=== PATIENT | male | born 1940 | race Caucasian/White ===

== ENCOUNTER 2016-12-11 08:50 | Inpatient (IN) ==
[2016-12-11] MEDS ORDERED: ONDANSETRON 4 MG/2 ML VIAL IV STA (09:31)
[2016-12-11] MEDS ORDERED: methylPREDNISolone SOD SUC 125 MG/2 ML VIAL IV STA (09:31)
[2016-12-11] MEDS ORDERED: ALBUTEROL/IPRATROPIUM 3 ML NEB RESP TX STA (09:31)
[2016-12-11] MEDS ORDERED: DILTIAZEM 50 MG/10 ML VIAL IV STA ×2 (09:34→10:22)
[2016-12-11] MEDS ORDERED: methylPREDNISolone SOD SUC 125 MG/2 ML VIAL ONE (09:42)
[2016-12-11] MEDS ORDERED: ONDANSETRON 4 MG/2 ML VIAL ONE (09:42)
[2016-12-11] MEDS ORDERED: DILTIAZEM 50 MG/10 ML VIAL IV ONE (09:42)
[2016-12-11 09:49] LABS: Basophils % 0.4 % (0.0-0.8); Eosinophils # 0.2 10*3/uL (0.0-0.87); Eosinophils % 2.2 % (0.00-10.9); Hematocrit 41.8 VOL% (42.0-52.0); Hemoglobin 15.1 GM/DL (14.0-18.0); Immature Granulocytes Absolute 0.09 #; Lymphocytes # 1.1 10*3/uL (1.4-4.0); Lymphocytes % 12.5 % (21.2-54.2); Mean Corpuscular HGB Conc 36.1 GM/DL (32-36); Mean Corpuscular Hemoglobin 33 PG (27-34); Mean Corpuscular Volume 92.1 FL (87-102); Mean Platelet Volume 10.2 FL (9.6-12.0); Monocytes # 1.2 10*3/uL (0.11-0.8); Monocytes % 13.7 % (1.7-12.7); Neutrophils # 6.3 10*3/uL (1.4-7.4); Neutrophils % 70.2 % (38.7-73.9); Platelet Count 217 T/CUMM (130-400); Red Blood Count 4.54 MC/CUMM (3.8-5.5); Red Cell Distribution Width 13.3 % (9.3-17.3)
[2016-12-11 09:54] LABS: Apearance,Urine CLEAR (Clear); Bilirubin,Urine Negative (Negative); Blood, Urine Negative (Negative); Glucose,Urine (UA) Negative (Negative); Ketones,Urine Negative (Negative); Mucus,Urine Occasional /LPF (Occasional); Nitrite,Urine Negative (Negative); Protein,Urine Negative; RBC,Urine <1 /HPF (0-4); Squamous Epithelial Cell,Urine Occasional /HPF (0-10); Urine Color Yellow (Yellow); Urine Specific Gravity 1.013 (1.001-1.035); WBC,Urine 1 /HPF (0-6)
[2016-12-11 09:55] LABS: INR 1.2; PT Patient Result 12.1 SECS; Partial Thromboplastin Time 28.4 SECS (0-40)
[2016-12-11 09:59] LABS: Barbiturates Screen,Urine Negative (Negative); Benzodiazepines Screen,Urine Negative (Negative); Cannabinoid Screen,Urine Negative (Negative); Opiate Screen,Urine Negative (Negative); Phencyclidine Screen,Urine Negative (Negative)
[2016-12-11 10:35] LABS: Alanine Aminotransferase 49 U/L (16-61); Albumin 2.9 G/DL (3.4-5.0); Alkaline Phosphatase 73 U/L (45-117); Aspartate Amino Transferase 42 U/L (0-37); Blood Urea Nitrogen 13 MG/DL (7-18); Calcium 8.8 MG/DL (8.5-10.1); Glucose 175 MG/DL (74-106); Osmolality,Calculated 256.4 MOS/KG (273-304); Potassium 3.5 MMOL/L (3.5-5.1); Sodium 126 MMOL/L (136-145); Total Protein 7.5 G/DL (6.4-8.3); Troponin I Only 0.019 NG/ML (0.00-0.045)
[2016-12-11 10:40] LABS: Free T4 (Free Thyroxine) 1.46 NG/DL (0.76-1.46); Thyroid Stimulating Hormone 2.2 uIU/ml (0.358-3.74)
[2016-12-11] MEDS ORDERED: ONDANSETRON 4 MG/2 ML VIAL IV PRN (11:37)
[2016-12-11] MEDS ORDERED: INFLUENZA VIRUS VACCINE 0.5 ML SYRINGE IM ONE (14:35)
[2016-12-11] MEDS ORDERED: FUROSEMIDE 20 MG/2 ML VIAL IV ONE (14:48)
[2016-12-11] MEDS ORDERED: ENOXAPARIN 40 MG/0.4 ML SYRINGE SUBCUT SCH (15:00)
[2016-12-11] MEDS ORDERED: SODIUM CHLORIDE 0.9% 1,000 ML IV SCH (15:00)
[2016-12-11] MEDS ORDERED: DILTIAZEM CD 120 MG CAPSULE PO SCH (15:00)
[2016-12-11 15:53] LABS: Troponin I Only < 0.015 NG/ML (0.00-0.045)
[2016-12-11] MEDS ORDERED: DEXTROSE 50% 25 GM/50 ML VIAL IV PRN (17:14)
[2016-12-11] MEDS ORDERED: GLUCAGON 1 MG VIAL IM PRN (17:14)
[2016-12-11] MEDS: metFORMIN 500 MG TABLET PO SCH (17:34)
[2016-12-11 21:17] LABS: Troponin I Only < 0.015 NG/ML (0.00-0.045)
[2016-12-11] MEDS: INSULIN REGULAR 100 UNIT/ML SUBCUT SCH (21:49)
[2016-12-11] MEDS: LEVOFLOXACIN INJ 500 MG in PREMIX 1 EACH IV SCH (21:49)
[2016-12-11] MEDS: MONTELUKAST 10 MG TABLET PO SCH (21:50)
[2016-12-11] MEDS: ASPIRIN EC 81 MG TABLET PO SCH (21:50)
[2016-12-11] MEDS: POTASSIUM CHLORIDE 20 MEQ TABLET PO SCH (21:50)
[2016-12-11] MEDS: SOTALOL 80 MG TABLET PO SCH (21:50)
[2016-12-11] MEDS: TERAZOSIN 5 MG CAPSULE PO SCH (21:53)
[2016-12-12 03:49] LABS: Basophils % 0.4 % (0.0-0.8); Hematocrit 41.1 VOL% (42.0-52.0); Hemoglobin 14.7 GM/DL (14.0-18.0); Immature Granulocytes Absolute 0.08 #; Lymphocytes # 0.6 10*3/uL (1.4-4.0); Lymphocytes % 7.8 % (21.2-54.2); Mean Corpuscular HGB Conc 35.8 GM/DL (32-36); Mean Corpuscular Hemoglobin 33 PG (27-34); Mean Corpuscular Volume 93.4 FL (87-102); Mean Platelet Volume 10.7 FL (9.6-12.0); Monocytes # 0.8 10*3/uL (0.11-0.8); Monocytes % 9.5 % (1.7-12.7); Neutrophils # 6.7 10*3/uL (1.4-7.4); Neutrophils % 81.3 % (38.7-73.9); Platelet Count 254 T/CUMM (130-400); Red Cell Distribution Width 13.2 % (9.3-17.3); White Blood Count 8.2 T/CUMM (4-12)
[2016-12-12 04:19] LABS: Calcium 8.9 MG/DL (8.5-10.1); Magnesium 2.2 MG/DL (1.8-2.4); Osmolality,Calculated 265.7 MOS/KG (273-304); Potassium 4.6 MMOL/L (3.5-5.1)
[2016-12-12 04:26] LABS: Risk Ratio 4.08; VLDL CHOLESTEROL 23.4 MG/DL
[2016-12-12 05:52] LABS: Hepatitis A Ab IgM Quant 0.08 Index; Hepatitis A Ab IgM Result Negative (Negative); Hepatitis B Core IgM Quant 0.13 Index; Hepatitis B Core IgM Result Negative (Negative); Hepatitis B Surface Ag Quant < 0.10 Index; Hepatitis B Surface Ag Result Negative (Negative); Hepatitis C Virus Ab Quant 0.12 Index; Hepatitis C Virus Ab Result Negative (Negative)
[2016-12-12] MEDS: INSULIN REGULAR 100 UNIT/ML SUBCUT SCH ×4 (08:21→21:09)
[2016-12-12] MEDS: METOPROLOL TARTRATE 25 MG TABLET PO SCH (08:23)
[2016-12-12] MEDS: POTASSIUM CHLORIDE 20 MEQ TABLET PO SCH ×2 (08:23→21:08)
[2016-12-12] MEDS: amLODIPine 10 MG TABLET PO SCH (08:23)
[2016-12-12] MEDS: SERTRALINE 25 MG TABLET PO SCH (08:23)
[2016-12-12] MEDS: SOTALOL 80 MG TABLET PO SCH ×2 (08:23→21:08)
[2016-12-12] MEDS: PANTOPRAZOLE 40 MG TABLET PO SCH (08:23)
[2016-12-12] MEDS: PIOGLITAZONE 15 MG TABLET PO SCH (08:23)
[2016-12-12] MEDS: sitaGLIPtin 25 MG TABLET PO SCH (17:04)
[2016-12-12] MEDS: metFORMIN 500 MG TABLET PO SCH (17:05)
[2016-12-12] MEDS: MONTELUKAST 10 MG TABLET PO SCH (21:08)
[2016-12-12] MEDS: TERAZOSIN 5 MG CAPSULE PO SCH (21:08)
[2016-12-12] MEDS: ASPIRIN EC 81 MG TABLET PO SCH (21:08)
[2016-12-12] MEDS: LEVOFLOXACIN INJ 500 MG in PREMIX 1 EACH IV SCH (21:10)
[2016-12-13 05:38] LABS: Calcium 8.4 MG/DL (8.5-10.1); Osmolality,Calculated 275.1 MOS/KG (273-304); Potassium 5.1 MMOL/L (3.5-5.1)
[2016-12-13] MEDS: SOTALOL 80 MG TABLET PO SCH ×2 (10:00→21:27)
[2016-12-13] MEDS: METOPROLOL TARTRATE 25 MG TABLET PO SCH (10:04)
[2016-12-13] MEDS: amLODIPine 10 MG TABLET PO SCH (10:04)
[2016-12-13] MEDS: POTASSIUM CHLORIDE 20 MEQ TABLET PO SCH ×2 (10:05→21:28)
[2016-12-13] MEDS: PIOGLITAZONE 15 MG TABLET PO SCH (10:05)
[2016-12-13] MEDS: PANTOPRAZOLE 40 MG TABLET PO SCH (10:05)
[2016-12-13] MEDS: INSULIN REGULAR 100 UNIT/ML SUBCUT SCH ×4 (10:06→21:28)
[2016-12-13] MEDS: SERTRALINE 25 MG TABLET PO SCH (10:06)
[2016-12-13] MEDS: sitaGLIPtin 25 MG TABLET PO SCH (17:55)
[2016-12-13] MEDS: metFORMIN 500 MG TABLET PO SCH (17:56)
[2016-12-13] MEDS: LEVOFLOXACIN INJ 500 MG in PREMIX 1 EACH IV SCH (21:24)
[2016-12-13] MEDS: MONTELUKAST 10 MG TABLET PO SCH (21:27)
[2016-12-13] MEDS: TERAZOSIN 5 MG CAPSULE PO SCH (21:27)
[2016-12-13] MEDS: ASPIRIN EC 81 MG TABLET PO SCH (21:27)
[2016-12-14] MEDS ORDERED: REGADENOSON 0.4 MG/5 ML SYRINGE IV ONE (09:06)
[2016-12-14] MEDS: INSULIN REGULAR 100 UNIT/ML SUBCUT SCH ×4 (09:54→20:47)
[2016-12-14] MEDS: SOTALOL 80 MG TABLET PO SCH ×2 (09:55→20:42)
[2016-12-14] MEDS: PIOGLITAZONE 15 MG TABLET PO SCH (09:55)
[2016-12-14] MEDS: POTASSIUM CHLORIDE 20 MEQ TABLET PO SCH ×2 (09:55→20:42)
[2016-12-14] MEDS: PANTOPRAZOLE 40 MG TABLET PO SCH (09:56)
[2016-12-14] MEDS: amLODIPine 10 MG TABLET PO SCH (09:56)
[2016-12-14] MEDS: SERTRALINE 25 MG TABLET PO SCH (09:56)
[2016-12-14] MEDS: CLINDAMYCIN INJ 600 MG in PREMIX 1 EACH IV SCH ×2 (10:03→16:56)
[2016-12-14] MEDS ORDERED: GLUCAGON 1 MG VIAL IM PRN (10:54)
[2016-12-14] MEDS ORDERED: DEXTROSE 50% 25 GM/50 ML VIAL IV PRN (10:54)
[2016-12-14] MEDS: sitaGLIPtin 25 MG TABLET PO SCH (16:59)
[2016-12-14] MEDS: metFORMIN 500 MG TABLET PO SCH (16:59)
[2016-12-14] MEDS: ACETAMINOPHEN 500 MG TABLET PO PRN (18:13)
[2016-12-14] MEDS: LEVOFLOXACIN INJ 500 MG in PREMIX 1 EACH IV SCH (20:39)
[2016-12-14] MEDS: ASPIRIN EC 81 MG TABLET PO SCH (20:42)
[2016-12-14] MEDS: MONTELUKAST 10 MG TABLET PO SCH (20:42)
[2016-12-14] MEDS: TERAZOSIN 5 MG CAPSULE PO SCH (20:42)
[2016-12-14] MEDS: CARVEDILOL 3.125 MG TABLET PO SCH (20:42)
[2016-12-14] MEDS: ALBUTEROL/IPRATROPIUM 3 ML NEB RESP TX SCH (21:40)
[2016-12-15] MEDS: CLINDAMYCIN INJ 600 MG in PREMIX 1 EACH IV SCH ×3 (00:21→16:47)
[2016-12-15] MEDS: ALBUTEROL/IPRATROPIUM 3 ML NEB RESP TX SCH ×4 (00:44→19:22)
[2016-12-15 06:00] LABS: ABG Base Excess 0.6 MMOL/L (-2.5-2.5); ABG HCO3 24.8 MMOL/L (20-26); ABG Oxygen Saturation 89.1 % (95-100); ABG PCO2 33.5 MM HG (35-48); ABG PH 7.459 (7.35-7.45); ABG PO2 53.8 MM HG (80-95); ABG TCO2 20.5 MMOL/L (23-27); Allen Test Positive; Pt O2 Delivery Device Venturi Mask
[2016-12-15] MEDS: methylPREDNISolone SOD SUC 40 MG/1 ML VIAL IV SCH ×2 (06:03→17:47)
[2016-12-15] MEDS: SERTRALINE 25 MG TABLET PO SCH (08:28)
[2016-12-15] MEDS: CARVEDILOL 3.125 MG TABLET PO SCH ×2 (08:28→22:14)
[2016-12-15] MEDS: PANTOPRAZOLE 40 MG TABLET PO SCH (08:28)
[2016-12-15] MEDS: POTASSIUM CHLORIDE 20 MEQ TABLET PO SCH ×2 (08:28→22:15)
[2016-12-15] MEDS: SOTALOL 80 MG TABLET PO SCH ×2 (08:28→22:14)
[2016-12-15] MEDS: PIOGLITAZONE 15 MG TABLET PO SCH (08:28)
[2016-12-15] MEDS: amLODIPine 10 MG TABLET PO SCH (08:28)
[2016-12-15 08:29] LABS: Basophils % 0.3 % (0.0-0.8); Eosinophils # 0.3 10*3/uL (0.0-0.87); Eosinophils % 2.2 % (0.00-10.9); Hematocrit 40.4 VOL% (42.0-52.0); Hemoglobin 13.9 GM/DL (14.0-18.0); Immature Granulocytes Absolute 0.13 #; Lymphocytes # 0.9 10*3/uL (1.4-4.0); Lymphocytes % 6.8 % (21.2-54.2); Mean Corpuscular HGB Conc 34.4 GM/DL (32-36); Mean Corpuscular Hemoglobin 33 PG (27-34); Mean Corpuscular Volume 95.7 FL (87-102); Mean Platelet Volume 10.4 FL (9.6-12.0); Monocytes # 1.2 10*3/uL (0.11-0.8); Monocytes % 9.8 % (1.7-12.7); Neutrophils % 79.9 % (38.7-73.9); Platelet Count 259 T/CUMM (130-400); Red Blood Count 4.22 MC/CUMM (3.8-5.5); Red Cell Distribution Width 13.4 % (9.3-17.3); White Blood Count 12.5 T/CUMM (4-12)
[2016-12-15] MEDS: INSULIN REGULAR 100 UNIT/ML SUBCUT SCH ×4 (08:32→22:15)
[2016-12-15] MEDS: FUROSEMIDE 40 MG/4 ML VIAL IV SCH ×2 (08:32→16:15)
[2016-12-15 08:43] LABS: Calcium 8.1 MG/DL (8.5-10.1); Magnesium 2.1 MG/DL (1.8-2.4); Osmolality,Calculated 266.7 MOS/KG (273-304); Potassium 4.4 MMOL/L (3.5-5.1)
[2016-12-15] MEDS ORDERED: FUROSEMIDE 40 MG/4 ML VIAL IV SCH (09:00)
[2016-12-15] MEDS ORDERED: ALBUTEROL/IPRATROPIUM 3 ML NEB RESP TX ONE (15:52)
[2016-12-15] MEDS ORDERED: methylPREDNISolone SOD SUC 40 MG/1 ML VIAL IV ONE (15:53)
[2016-12-15] MEDS: sitaGLIPtin 25 MG TABLET PO SCH (16:14)
[2016-12-15] MEDS: metFORMIN 500 MG TABLET PO SCH (16:15)
[2016-12-15] MEDS ORDERED: ETOMIDATE 20 MG/10 ML VIAL IV ONE (19:57)
[2016-12-15] MEDS ORDERED: SUCCINYLCHOLINE 200 MG/10 ML VIAL ONE (19:58)
[2016-12-15] MEDS ORDERED: PROPOFOL 1,000 MG/100 ML BOTTLE IV ONE (20:04)
[2016-12-15] MEDS: PROPOFOL 1,000 MG/100 ML BOTTLE IV SCH ×2 (21:00→23:01)
[2016-12-15 21:05] LABS: ABG Base Excess -6.6 MMOL/L (-2.5-2.5); ABG Oxygen Saturation 73.1 % (95-100); ABG PO2 46.1 MM HG (80-95); ABG TCO2 27.4 MMOL/L (23-27); Allen Test Positive; Pt O2 Delivery Device Ventilator
[2016-12-15 21:07] LABS: ABG PCO2 78.5 MM HG (35-48); ABG PH 7.121 (7.35-7.45)
[2016-12-15 21:13] LABS: Amorphous Crystals,Urine Occasional /HPF (Few); Apearance,Urine CLOUDY (Clear); Bacteria,Urine Few /HPF (Few); Bilirubin,Urine Negative (Negative); Blood, Urine Large mg/dL (Negative); Glucose,Urine (UA) Negative (Negative); Hyaline Casts,Urine 5 /LPF (0-3); Ketones,Urine Negative (Negative); Mucus,Urine Occasional /LPF (Occasional); Nitrite,Urine Negative (Negative); Protein,Urine Negative; RBC,Urine 34 /HPF (0-4); Urine Color Yellow (Yellow); Urine Specific Gravity 1.006 (1.001-1.035); Urine Urobilinogen < 2.0 EU/DL (0.2-1.0); WBC,Urine 20 /HPF (0-6)
[2016-12-15] MEDS ORDERED: FUROSEMIDE 20 MG/2 ML VIAL IV ONE (21:35)
[2016-12-15 22:01] LABS: ABG Base Excess -4.4 MMOL/L (-2.5-2.5); ABG HCO3 20.4 MMOL/L (20-26); ABG Oxygen Saturation 80.9 % (95-100); ABG PO2 58.6 MM HG (80-95); ABG TCO2 24.1 MMOL/L (23-27); Allen Test Positive; Pt O2 Delivery Device Ventilator
[2016-12-15 22:02] LABS: ABG PCO2 72.8 MM HG (35-48); ABG PH 7.177 (7.35-7.45)
[2016-12-15] MEDS ORDERED: SODIUM BICARBONATE 50 MEQ/50 ML VIAL IV ONE (22:09)
[2016-12-15] MEDS: ASPIRIN EC 81 MG TABLET PO SCH (22:14)
[2016-12-15] MEDS: INSULIN GLARGINE 100 UNIT/ML SUBCUT SCH (22:15)
[2016-12-15] MEDS: LEVOFLOXACIN INJ 500 MG in PREMIX 1 EACH IV SCH (22:15)
[2016-12-15] MEDS: SODIUM BICARB INJ 100 MEQ in DEXTROSE 5% 1,000 ML IV SCH (22:15)
[2016-12-15] MEDS ORDERED: SODIUM BICARBONATE 50 MEQ/50 ML SYRINGE IV ONE (22:25)
[2016-12-15] MEDS: TERAZOSIN 5 MG CAPSULE PO SCH (22:35)
[2016-12-15] MEDS: MONTELUKAST 10 MG TABLET PO SCH (22:35)
[2016-12-16] MEDS: PHENYLEPHRINE DRIP 40 MG/250 ML PREMIX IV SCH ×4 (00:12→12:00)
[2016-12-16] MEDS: ALBUTEROL/IPRATROPIUM 3 ML NEB RESP TX SCH ×4 (00:21→19:28)
[2016-12-16] MEDS: PROPOFOL 1,000 MG/100 ML BOTTLE IV SCH ×6 (01:44→23:05)
[2016-12-16] MEDS: CLINDAMYCIN INJ 600 MG in PREMIX 1 EACH IV SCH ×3 (02:01→17:16)
[2016-12-16 04:23] LABS: ABG Base Excess 1.6 MMOL/L (-2.5-2.5); ABG HCO3 28.6 MMOL/L (20-26); ABG Oxygen Saturation 88.5 % (95-100); ABG PCO2 53.9 MM HG (35-48); ABG PH 7.342 (7.35-7.45); ABG PO2 51.9 MM HG (80-95); ABG TCO2 30.2 MMOL/L (23-27); Allen Test Positive; Pt O2 Delivery Device Ventilator
[2016-12-16 05:12] LABS: Basophils # 0.1 10*3/uL (0.0-0.2); Basophils % 0.4 % (0.0-0.8); Hemoglobin 14.3 GM/DL (14.0-18.0); Immature Granulocytes % 2.3 %; Immature Granulocytes Absolute 0.56 #; Lymphocytes % 3.8 % (21.2-54.2); Mean Corpuscular HGB Conc 33.3 GM/DL (32-36); Mean Corpuscular Hemoglobin 33 PG (27-34); Mean Corpuscular Volume 97.9 FL (87-102); Mean Platelet Volume 10.7 FL (9.6-12.0); Monocytes % 8.2 % (1.7-12.7); Neutrophils # 21.1 10*3/uL (1.4-7.4); Neutrophils % 85.3 % (38.7-73.9); Platelet Count 292 T/CUMM (130-400); Red Blood Count 4.39 MC/CUMM (3.8-5.5); Red Cell Distribution Width 13.7 % (9.3-17.3); White Blood Count 24.7 T/CUMM (4-12)
[2016-12-16 05:44] LABS: Calcium 8.4 MG/DL (8.5-10.1); Magnesium 2.3 MG/DL (1.8-2.4); Osmolality,Calculated 273.7 MOS/KG (273-304); Potassium 5.2 MMOL/L (3.5-5.1)
[2016-12-16 06:10] LABS: Albumin 2.5 G/DL (3.4-5.0); Bilirubin,Total 1.9 MG/DL (0.2-1.0); Calcium 8.3 MG/DL (8.5-10.1); Osmolality,Calculated 271.8 MOS/KG (273-304); Potassium 5.2 MMOL/L (3.5-5.1); Total Protein 6.3 G/DL (6.4-8.3)
[2016-12-16] MEDS: methylPREDNISolone SOD SUC 40 MG/1 ML VIAL IV SCH ×2 (06:10→18:49)
[2016-12-16 06:17] LABS: Band Neutrophils 6 % (0-10); Giant Platelets Few; Hypochromasia Slight; Lymphocytes 2 % (20-55); Platelet Estimate Adequate; Segmented Neutrophils 85 % (50-85); Total Cells Counted 100
[2016-12-16 06:30] LABS: Albumin 2.5 G/DL (3.4-5.0); Bilirubin,Direct 0.77 MG/DL (0.0-0.20); Bilirubin,Indirect 0.8 MG/DL (0.0-1.0); Bilirubin,Total 1.6 MG/DL (0.2-1.0); Total Protein 6.4 G/DL (6.4-8.3)
[2016-12-16] MEDS: FUROSEMIDE 40 MG/4 ML VIAL IV SCH ×2 (08:44→17:16)
[2016-12-16] MEDS: INSULIN REGULAR 100 UNIT/ML SUBCUT SCH ×4 (08:44→20:41)
[2016-12-16] MEDS: POTASSIUM CHLORIDE 20 MEQ TABLET PO SCH ×2 (10:16→20:41)
[2016-12-16] MEDS: SOTALOL 80 MG TABLET PO SCH ×2 (10:23→20:30)
[2016-12-16] MEDS: CARVEDILOL 3.125 MG TABLET PO SCH ×2 (10:23→20:30)
[2016-12-16] MEDS ORDERED: FUROSEMIDE 20 MG/2 ML VIAL IV ONE (10:49)
[2016-12-16] MEDS: SODIUM BICARB INJ 100 MEQ in DEXTROSE 5% 1,000 ML IV SCH (12:15)
[2016-12-16] MEDS ORDERED: PHENYLEPHRINE DRIP 40 MG/250 ML PREMIX IV ONE (17:40)
[2016-12-16] MEDS: PHENYLEPHRINE INJ 160 MG in SODIUM CHLORIDE 0.9% 234 ML IV SCH (20:29)
[2016-12-16] MEDS: ASPIRIN EC 81 MG TABLET PO SCH (20:30)
[2016-12-16] MEDS: MORPHINE 2 MG/1 ML SYRINGE IV PRN (20:30)
[2016-12-16] MEDS: LEVOFLOXACIN INJ 500 MG in PREMIX 1 EACH IV SCH (20:32)
[2016-12-16] MEDS: INSULIN GLARGINE 100 UNIT/ML SUBCUT SCH (20:38)
[2016-12-17] MEDS: CLINDAMYCIN INJ 600 MG in PREMIX 1 EACH IV SCH ×3 (00:05→16:49)
[2016-12-17] MEDS: ALBUTEROL/IPRATROPIUM 3 ML NEB RESP TX SCH ×4 (00:35→20:11)
[2016-12-17] MEDS ORDERED: FUROSEMIDE 40 MG/4 ML VIAL IV ONE (01:32)
[2016-12-17] MEDS ORDERED: INSULIN GLARGINE 100 UNIT/ML SUBCUT ONE (01:37)
[2016-12-17] MEDS: PROPOFOL 1,000 MG/100 ML BOTTLE IV SCH ×5 (02:19→23:17)
[2016-12-17] MEDS: MORPHINE 2 MG/1 ML SYRINGE IV PRN ×2 (02:21→20:42)
[2016-12-17] MEDS: SODIUM BICARB INJ 100 MEQ in DEXTROSE 5% 1,000 ML IV SCH ×2 (02:32→16:15)
[2016-12-17 03:41] LABS: ABG Base Excess 7.1 MMOL/L (-2.5-2.5); ABG HCO3 30.8 MMOL/L (20-26); ABG Oxygen Saturation 93.4 % (95-100); ABG PH 7.414 (7.35-7.45); ABG PO2 68.9 MM HG (80-95); Allen Test Positive; Pt O2 Delivery Device Ventilator
[2016-12-17 05:04] LABS: Basophils % 0.2 % (0.0-0.8); Hematocrit 38.9 VOL% (42.0-52.0); Hemoglobin 13.4 GM/DL (14.0-18.0); Immature Granulocytes % 1.7 %; Immature Granulocytes Absolute 0.26 #; Lymphocytes # 0.7 10*3/uL (1.4-4.0); Lymphocytes % 4.7 % (21.2-54.2); Mean Corpuscular HGB Conc 34.4 GM/DL (32-36); Mean Corpuscular Hemoglobin 33 PG (27-34); Mean Corpuscular Volume 95.3 FL (87-102); Monocytes # 1.3 10*3/uL (0.11-0.8); Monocytes % 8.8 % (1.7-12.7); Neutrophils # 12.7 10*3/uL (1.4-7.4); Neutrophils % 84.6 % (38.7-73.9); Platelet Count 220 T/CUMM (130-400); Red Blood Count 4.08 MC/CUMM (3.8-5.5); Red Cell Distribution Width 13.5 % (9.3-17.3); White Blood Count 15.1 T/CUMM (4-12)
[2016-12-17 05:31] LABS: Calcium 7.8 MG/DL (8.5-10.1); Magnesium 2.3 MG/DL (1.8-2.4); Osmolality,Calculated 282.2 MOS/KG (273-304); Potassium 3.6 MMOL/L (3.5-5.1)
[2016-12-17 05:34] LABS: Albumin 2.1 G/DL (3.4-5.0); Bilirubin,Total 1.4 MG/DL (0.2-1.0); Osmolality,Calculated 282.2 MOS/KG (273-304); Potassium 3.6 MMOL/L (3.5-5.1); Total Protein 5.8 G/DL (6.4-8.3)
[2016-12-17] MEDS: methylPREDNISolone SOD SUC 40 MG/1 ML VIAL IV SCH ×2 (05:43→17:00)
[2016-12-17 06:09] LABS: Band Neutrophils 3 % (0-10); Giant Platelets Few; Hypochromasia 1+; Lymphocytes 3 % (20-55); Platelet Estimate Adequate; Segmented Neutrophils 85 % (50-85); Total Cells Counted 100
[2016-12-17] MEDS: POTASSIUM CHLORIDE 20 MEQ TABLET PO SCH (08:15)
[2016-12-17] MEDS: FUROSEMIDE 40 MG/4 ML VIAL IV SCH ×3 (08:15→16:51)
[2016-12-17] MEDS: SOTALOL 80 MG TABLET PO SCH ×2 (08:15→20:34)
[2016-12-17] MEDS: CARVEDILOL 3.125 MG TABLET PO SCH ×2 (08:39→20:34)
[2016-12-17] MEDS: INSULIN REGULAR 100 UNIT/ML SUBCUT SCH ×3 (13:26→23:40)
[2016-12-17] MEDS: LEVOFLOXACIN INJ 500 MG in PREMIX 1 EACH IV SCH (20:10)
[2016-12-17] MEDS: ASPIRIN EC 81 MG TABLET PO SCH (20:34)
[2016-12-17] MEDS: INSULIN GLARGINE 100 UNIT/ML SUBCUT SCH (20:35)
[2016-12-17] MEDS: POTASSIUM CHLORIDE 20 MEQ/15 ML UDCUP PO SCH (20:35)
[2016-12-18] MEDS: ALBUTEROL/IPRATROPIUM 3 ML NEB RESP TX SCH ×4 (01:21→19:26)
[2016-12-18] MEDS: CLINDAMYCIN INJ 600 MG in PREMIX 1 EACH IV SCH ×3 (01:31→16:13)
[2016-12-18] MEDS: PROPOFOL 1,000 MG/100 ML BOTTLE IV SCH ×7 (02:30→22:11)
[2016-12-18] MEDS: PHENYLEPHRINE INJ 160 MG in SODIUM CHLORIDE 0.9% 234 ML IV SCH ×2 (02:38→19:40)
[2016-12-18 03:14] LABS: ABG Base Excess 14.1 MMOL/L (-2.5-2.5); ABG Oxygen Saturation 96.6 % (95-100); ABG PCO2 54.4 MM HG (35-48); ABG PO2 82.4 MM HG (80-95); Allen Test Positive; Pt O2 Delivery Device Ventilator
[2016-12-18 05:44] LABS: Basophils % 0.1 % (0.0-0.8); Hematocrit 39.3 VOL% (42.0-52.0); Hemoglobin 13.5 GM/DL (14.0-18.0); Immature Granulocytes % 1.8 %; Immature Granulocytes Absolute 0.24 #; Lymphocytes # 0.8 10*3/uL (1.4-4.0); Lymphocytes % 5.7 % (21.2-54.2); Mean Corpuscular HGB Conc 34.4 GM/DL (32-36); Mean Corpuscular Hemoglobin 33 PG (27-34); Mean Corpuscular Volume 94.7 FL (87-102); Mean Platelet Volume 10.3 FL (9.6-12.0); Monocytes # 1.1 10*3/uL (0.11-0.8); Monocytes % 8.4 % (1.7-12.7); Neutrophils # 11.4 10*3/uL (1.4-7.4); Platelet Count 150 T/CUMM (130-400); Red Blood Count 4.15 MC/CUMM (3.8-5.5); Red Cell Distribution Width 13.2 % (9.3-17.3); White Blood Count 13.6 T/CUMM (4-12)
[2016-12-18 06:13] LABS: Calcium 7.8 MG/DL (8.5-10.1); Magnesium 2.7 MG/DL (1.8-2.4); Osmolality,Calculated 283.4 MOS/KG (273-304); Potassium 3.4 MMOL/L (3.5-5.1)
[2016-12-18 06:16] LABS: Hypochromasia 1+
[2016-12-18 06:17] LABS: Microcytosis 1+
[2016-12-18 06:21] LABS: Calcium 7.7 MG/DL (8.5-10.1); Osmolality,Calculated 285.1 MOS/KG (273-304); Potassium 3.4 MMOL/L (3.5-5.1)
[2016-12-18] MEDS: SODIUM BICARB INJ 100 MEQ in DEXTROSE 5% 1,000 ML IV SCH (06:22)
[2016-12-18] MEDS: INSULIN REGULAR 100 UNIT/ML SUBCUT SCH ×3 (06:22→18:18)
[2016-12-18] MEDS ORDERED: LIDOCAINE 2% 20 ML VIAL RESP TX ONE (07:19)
[2016-12-18] MEDS ORDERED: LIDOCAINE 1% 20 ML VIAL MISC INJ ONE (07:19)
[2016-12-18 09:16] LABS: ABG Base Excess 16.4 MMOL/L (-2.5-2.5); ABG HCO3 42.4 MMOL/L (20-26); ABG Oxygen Saturation 90.4 % (95-100); ABG PCO2 55.3 MM HG (35-48); ABG PH 7.502 (7.35-7.45); ABG PO2 52.9 MM HG (80-95); Pt O2 Delivery Device Ventilator
[2016-12-18] MEDS: INSULIN GLARGINE 100 UNIT/ML SUBCUT SCH ×2 (09:55→20:17)
[2016-12-18] MEDS: SOTALOL 80 MG TABLET PO SCH ×2 (09:56→20:17)
[2016-12-18] MEDS: POTASSIUM CHLORIDE 20 MEQ/15 ML UDCUP PO SCH ×2 (09:56→20:17)
[2016-12-18] MEDS: CARVEDILOL 3.125 MG TABLET PO SCH (10:44)
[2016-12-18] MEDS: FUROSEMIDE 40 MG/4 ML VIAL IV SCH ×2 (12:10→15:39)
[2016-12-18] MEDS: MORPHINE 2 MG/1 ML SYRINGE IV PRN (15:39)
[2016-12-18] MEDS: LEVOFLOXACIN INJ 500 MG in PREMIX 1 EACH IV SCH (20:17)
[2016-12-18] MEDS: PRAVASTATIN 20 MG TABLET PO SCH (20:18)
[2016-12-18] MEDS: ASPIRIN EC 81 MG TABLET PO SCH (20:18)
[2016-12-18] MEDS: APIXABAN 5 MG TABLET PO SCH (20:18)
[2016-12-18] MEDS ORDERED: LORazepam 2 MG/1 ML VIAL IV ONE (21:02)
[2016-12-19] MEDS: ALBUTEROL/IPRATROPIUM 3 ML NEB RESP TX SCH ×4 (00:18→20:02)
[2016-12-19] MEDS: PROPOFOL 1,000 MG/100 ML BOTTLE IV SCH ×7 (00:26→22:19)
[2016-12-19] MEDS: CLINDAMYCIN INJ 600 MG in PREMIX 1 EACH IV SCH ×3 (00:48→15:52)
[2016-12-19] MEDS: INSULIN REGULAR 100 UNIT/ML SUBCUT SCH ×5 (00:48→18:16)
[2016-12-19 04:03] LABS: ABG HCO3 35.8 MMOL/L (20-26); ABG Oxygen Saturation 97.3 % (95-100); ABG PCO2 54.9 MM HG (35-48); ABG PH 7.456 (7.35-7.45); ABG PO2 86.8 MM HG (80-95); ABG TCO2 32.8 MMOL/L (23-27)
[2016-12-19 05:51] LABS: Basophils # 0.1 10*3/uL (0.0-0.2); Basophils % 0.5 % (0.0-0.8); Eosinophils # 0.2 10*3/uL (0.0-0.87); Eosinophils % 1.1 % (0.00-10.9); Hemoglobin 14.5 GM/DL (14.0-18.0); Immature Granulocytes Absolute 0.71 #; Lymphocytes % 5.4 % (21.2-54.2); Mean Corpuscular HGB Conc 33.7 GM/DL (32-36); Mean Corpuscular Hemoglobin 33 PG (27-34); Mean Corpuscular Volume 96.4 FL (87-102); Monocytes # 1.2 10*3/uL (0.11-0.8); Monocytes % 6.8 % (1.7-12.7); Neutrophils # 14.5 10*3/uL (1.4-7.4); Neutrophils % 82.2 % (38.7-73.9); Platelet Count 131 T/CUMM (130-400); Red Blood Count 4.46 MC/CUMM (3.8-5.5); Red Cell Distribution Width 13.5 % (9.3-17.3); White Blood Count 17.6 T/CUMM (4-12)
[2016-12-19 06:17] LABS: Band Neutrophils 1 % (0-10); Hypochromasia Slight; Lymphocytes 4 % (20-55); Microcytosis 1+; Platelet Estimate Decreased; Segmented Neutrophils 90 % (50-85); Total Cells Counted 100
[2016-12-19 06:26] LABS: Calcium 8.2 MG/DL (8.5-10.1); Magnesium 2.5 MG/DL (1.8-2.4); Osmolality,Calculated 297.7 MOS/KG (273-304)
[2016-12-19 06:30] LABS: Magnesium 2.5 MG/DL (1.8-2.4); Phosphorous 3.7 MG/DL (2.5-4.9); Prealbumin 11.1 MG/DL (20-40)
[2016-12-19] MEDS: FUROSEMIDE 40 MG/4 ML VIAL IV SCH ×2 (09:10→15:51)
[2016-12-19] MEDS: methylPREDNISolone SOD SUC 40 MG/1 ML VIAL IV SCH ×2 (09:13→20:30)
[2016-12-19] MEDS: SOTALOL 80 MG TABLET PO SCH ×2 (09:13→20:32)
[2016-12-19] MEDS: INSULIN GLARGINE 100 UNIT/ML SUBCUT SCH ×2 (09:13→20:31)
[2016-12-19] MEDS: POTASSIUM CHLORIDE 20 MEQ/15 ML UDCUP PO SCH ×2 (09:14→20:31)
[2016-12-19 09:31] LABS: ABG Base Excess 12.4 MMOL/L (-2.5-2.5); ABG HCO3 36.1 MMOL/L (20-26); ABG Oxygen Saturation 93.4 % (95-100); ABG PCO2 59.4 MM HG (35-48); ABG PH 7.436 (7.35-7.45); ABG PO2 68.7 MM HG (80-95); ABG TCO2 33.9 MMOL/L (23-27)
[2016-12-19] MEDS: APIXABAN 5 MG TABLET PO SCH ×2 (09:35→20:32)
[2016-12-19] MEDS: DORNASE ALFA 2.5 MG/2.5 ML VIAL RESP TX SCH ×2 (09:50→20:02)
[2016-12-19] MEDS: LORazepam 2 MG/1 ML VIAL IV PRN ×2 (12:26→20:31)
[2016-12-19] MEDS: ZINC OXIDE PASTE 113 GM TUBE TOP SCH ×2 (14:06→20:33)
[2016-12-19] MEDS ORDERED: SOTALOL 80 MG TABLET PO SCH (16:30)
[2016-12-19] MEDS: ASPIRIN EC 81 MG TABLET PO SCH (20:32)
[2016-12-19] MEDS: PRAVASTATIN 20 MG TABLET PO SCH (20:32)
[2016-12-19] MEDS: LEVOFLOXACIN INJ 500 MG in PREMIX 1 EACH IV SCH (20:32)
[2016-12-20] MEDS: ALBUTEROL/IPRATROPIUM 3 ML NEB RESP TX SCH ×4 (00:12→19:28)
[2016-12-20] MEDS: INSULIN REGULAR 100 UNIT/ML SUBCUT SCH ×5 (00:54→23:13)
[2016-12-20] MEDS: CLINDAMYCIN INJ 600 MG in PREMIX 1 EACH IV SCH ×4 (01:05→23:39)
[2016-12-20] MEDS: PROPOFOL 1,000 MG/100 ML BOTTLE IV SCH ×7 (01:31→23:05)
[2016-12-20 03:46] LABS: ABG Base Excess 8.9 MMOL/L (-2.5-2.5); ABG HCO3 32.4 MMOL/L (20-26); ABG Oxygen Saturation 90.9 % (95-100); ABG PCO2 60.3 MM HG (35-48); ABG PH 7.392 (7.35-7.45); ABG PO2 63.2 MM HG (80-95); ABG TCO2 31.3 MMOL/L (23-27)
[2016-12-20 05:16] LABS: Basophils % 0.1 % (0.0-0.8); Hematocrit 45.3 VOL% (42.0-52.0); Hemoglobin 15.1 GM/DL (14.0-18.0); Immature Granulocytes Absolute 1.02 #; Lymphocytes # 0.8 10*3/uL (1.4-4.0); Lymphocytes % 3.9 % (21.2-54.2); Mean Corpuscular HGB Conc 33.3 GM/DL (32-36); Mean Corpuscular Hemoglobin 33 PG (27-34); Mean Corpuscular Volume 97.6 FL (87-102); Mean Platelet Volume 10.9 FL (9.6-12.0); Monocytes # 1.1 10*3/uL (0.11-0.8); Monocytes % 5.6 % (1.7-12.7); Neutrophils # 17.2 10*3/uL (1.4-7.4); Neutrophils % 85.4 % (38.7-73.9); Platelet Count 137 T/CUMM (130-400); Red Blood Count 4.64 MC/CUMM (3.8-5.5); Red Cell Distribution Width 13.5 % (9.3-17.3); White Blood Count 20.2 T/CUMM (4-12)
[2016-12-20 05:47] LABS: Calcium 8.4 MG/DL (8.5-10.1); Magnesium 2.9 MG/DL (1.8-2.4); Osmolality,Calculated 309.1 MOS/KG (273-304)
[2016-12-20 05:53] LABS: Band Neutrophils 3 % (0-10); Giant Platelets Few; Hypochromasia 1+; Lymphocytes 1 % (20-55); Microcytosis Slight; Platelet Estimate Normal; Segmented Neutrophils 94 % (50-85); Total Cells Counted 100
[2016-12-20] MEDS: DORNASE ALFA 2.5 MG/2.5 ML VIAL RESP TX SCH ×2 (07:46→19:32)
[2016-12-20] MEDS: POTASSIUM CHLORIDE 20 MEQ/15 ML UDCUP PO SCH ×2 (08:34→20:12)
[2016-12-20] MEDS: APIXABAN 5 MG TABLET PO SCH ×2 (08:34→20:13)
[2016-12-20] MEDS: FUROSEMIDE 40 MG/4 ML VIAL IV SCH ×2 (08:35→15:46)
[2016-12-20] MEDS: methylPREDNISolone SOD SUC 40 MG/1 ML VIAL IV SCH ×2 (08:35→19:52)
[2016-12-20] MEDS: SOTALOL 80 MG TABLET PO SCH ×2 (08:35→20:13)
[2016-12-20] MEDS: INSULIN GLARGINE 100 UNIT/ML SUBCUT SCH ×2 (08:36→20:14)
[2016-12-20] MEDS: ZINC OXIDE PASTE 113 GM TUBE TOP SCH ×2 (08:36→20:22)
[2016-12-20] MEDS: PRAVASTATIN 20 MG TABLET PO SCH (20:12)
[2016-12-20] MEDS: ASPIRIN EC 81 MG TABLET PO SCH (20:12)
[2016-12-20] MEDS: LEVOFLOXACIN INJ 500 MG in PREMIX 1 EACH IV SCH (20:15)
[2016-12-21] MEDS: PROPOFOL 1,000 MG/100 ML BOTTLE IV SCH ×8 (01:14→22:27)
[2016-12-21] MEDS: ALBUTEROL/IPRATROPIUM 3 ML NEB RESP TX SCH ×4 (01:18→19:12)
[2016-12-21 03:59] LABS: ABG Base Excess 7.6 MMOL/L (-2.5-2.5); ABG HCO3 31.2 MMOL/L (20-26); ABG PCO2 56.8 MM HG (35-48); ABG PH 7.396 (7.35-7.45); ABG PO2 65.6 MM HG (80-95); ABG TCO2 29.6 MMOL/L (23-27); Allen Test Positive; Pt O2 Delivery Device Ventilator
[2016-12-21 05:18] LABS: Basophils % 0.1 % (0.0-0.8); Eosinophils % 0.1 % (0.00-10.9); Hematocrit 45.7 VOL% (42.0-52.0); Immature Granulocytes % 8.4 %; Immature Granulocytes Absolute 1.89 #; Lymphocytes % 4.6 % (21.2-54.2); Mean Corpuscular HGB Conc 32.8 GM/DL (32-36); Mean Corpuscular Hemoglobin 32 PG (27-34); Mean Corpuscular Volume 98.5 FL (87-102); Mean Platelet Volume 10.8 FL (9.6-12.0); Monocytes # 1.7 10*3/uL (0.11-0.8); Monocytes % 7.3 % (1.7-12.7); Neutrophils # 17.9 10*3/uL (1.4-7.4); Neutrophils % 79.5 % (38.7-73.9); Platelet Count 174 T/CUMM (130-400); Red Blood Count 4.64 MC/CUMM (3.8-5.5); Red Cell Distribution Width 13.7 % (9.3-17.3); White Blood Count 22.6 T/CUMM (4-12)
[2016-12-21 05:46] LABS: Anisocytosis 1+; Band Neutrophils 1 % (0-10); Hypochromasia 2+; Lymphocytes 10 % (20-55); Macrocytosis 1+; Metamyelocytes 6 %; Nucleated Red Blood Cells 1 (0-5); Platelet Estimate Normal; Segmented Neutrophils 78 % (50-85); Total Cells Counted 100
[2016-12-21 05:53] LABS: Calcium 8.7 MG/DL (8.5-10.1); Magnesium 2.7 MG/DL (1.8-2.4); Osmolality,Calculated 316.6 MOS/KG (273-304); Potassium 4.2 MMOL/L (3.5-5.1)
[2016-12-21] MEDS: INSULIN REGULAR 100 UNIT/ML SUBCUT SCH ×4 (05:59→23:59)
[2016-12-21] MEDS: DORNASE ALFA 2.5 MG/2.5 ML VIAL RESP TX SCH ×2 (07:30→19:12)
[2016-12-21] MEDS: FUROSEMIDE 40 MG/4 ML VIAL IV SCH ×2 (08:11→15:59)
[2016-12-21] MEDS: methylPREDNISolone SOD SUC 40 MG/1 ML VIAL IV SCH ×2 (08:15→19:53)
[2016-12-21] MEDS: DEXTROSE 5% 1,000 ML IV SCH (09:12)
[2016-12-21] MEDS: SOTALOL 80 MG TABLET PO SCH ×2 (09:13→20:13)
[2016-12-21] MEDS: POTASSIUM CHLORIDE 20 MEQ/15 ML UDCUP PO SCH ×2 (09:13→20:13)
[2016-12-21] MEDS: APIXABAN 5 MG TABLET PO SCH ×2 (09:14→20:13)
[2016-12-21] MEDS: ZINC OXIDE PASTE 113 GM TUBE TOP SCH ×2 (09:14→20:14)
[2016-12-21] MEDS: CLINDAMYCIN INJ 600 MG in PREMIX 1 EACH IV SCH ×3 (09:16→23:53)
[2016-12-21] MEDS: INSULIN GLARGINE 100 UNIT/ML SUBCUT SCH ×2 (09:17→20:14)
[2016-12-21] MEDS: PRAVASTATIN 20 MG TABLET PO SCH (20:12)
[2016-12-21] MEDS: LEVOFLOXACIN INJ 500 MG in PREMIX 1 EACH IV SCH (20:12)
[2016-12-21] MEDS: ASPIRIN CHEW 81 MG TABLET PO SCH (20:13)
[2016-12-22] MEDS: ALBUTEROL/IPRATROPIUM 3 ML NEB RESP TX SCH ×4 (00:34→20:03)
[2016-12-22] MEDS: PROPOFOL 1,000 MG/100 ML BOTTLE IV SCH ×8 (00:49→23:10)
[2016-12-22 03:27] LABS: ABG Base Excess 6.9 MMOL/L (-2.5-2.5); ABG HCO3 34.9 MMOL/L (20-26); ABG Oxygen Saturation 95.9 % (95-100); ABG PCO2 62.4 MM HG (35-48); ABG PH 7.366 (7.35-7.45); ABG PO2 80.2 MM HG (80-95); ABG TCO2 36.9 MMOL/L (23-27); Allen Test Positive; Pt O2 Delivery Device Ventilator
[2016-12-22 04:58] LABS: Calcium 8.8 MG/DL (8.5-10.1); Magnesium 2.6 MG/DL (1.8-2.4); Osmolality,Calculated 323.6 MOS/KG (273-304); Potassium 4.8 MMOL/L (3.5-5.1)
[2016-12-22] MEDS: DEXTROSE 5% 1,000 ML IV SCH (05:10)
[2016-12-22] MEDS: INSULIN REGULAR 100 UNIT/ML SUBCUT SCH ×3 (06:37→18:19)
[2016-12-22] MEDS: FUROSEMIDE 40 MG/4 ML VIAL IV SCH ×2 (08:31→17:14)
[2016-12-22] MEDS: methylPREDNISolone SOD SUC 40 MG/1 ML VIAL IV SCH ×2 (08:36→20:05)
[2016-12-22] MEDS: CLINDAMYCIN INJ 600 MG in PREMIX 1 EACH IV SCH ×2 (08:39→17:18)
[2016-12-22] MEDS: INSULIN GLARGINE 100 UNIT/ML SUBCUT SCH ×2 (08:51→20:22)
[2016-12-22] MEDS: POTASSIUM CHLORIDE 20 MEQ/15 ML UDCUP PO SCH ×2 (08:58→20:05)
[2016-12-22] MEDS: SOTALOL 80 MG TABLET PO SCH ×2 (09:02→20:05)
[2016-12-22] MEDS: APIXABAN 5 MG TABLET PO SCH ×2 (09:03→20:05)
[2016-12-22] MEDS: ZINC OXIDE PASTE 113 GM TUBE TOP SCH ×2 (09:04→20:19)
[2016-12-22] MEDS: ASPIRIN CHEW 81 MG TABLET PO SCH (20:04)
[2016-12-22] MEDS: PRAVASTATIN 20 MG TABLET PO SCH (20:04)
[2016-12-22] MEDS: LEVOFLOXACIN INJ 500 MG in PREMIX 1 EACH IV SCH (20:16)
[2016-12-22] MEDS: MORPHINE 2 MG/1 ML SYRINGE IV PRN (21:33)
[2016-12-22] MEDS: ACETAMINOPHEN 500 MG TABLET PO PRN (23:33)
[2016-12-23 00:33] LABS: INR 1.2; PT Patient Result 12.4 SECS
[2016-12-23 00:44] LABS: Hematocrit 50.5 VOL% (42.0-52.0); Hemoglobin 16.4 GM/DL (14.0-18.0)
[2016-12-23] MEDS: ALBUTEROL/IPRATROPIUM 3 ML NEB RESP TX SCH ×4 (00:50→19:46)
[2016-12-23] MEDS: CLINDAMYCIN INJ 600 MG in PREMIX 1 EACH IV SCH ×3 (02:30→17:18)
[2016-12-23] MEDS: PROPOFOL 1,000 MG/100 ML BOTTLE IV SCH ×3 (02:48→21:55)
[2016-12-23] MEDS: INSULIN REGULAR 100 UNIT/ML SUBCUT SCH ×4 (02:59→18:45)
[2016-12-23 03:25] LABS: ABG Base Excess 3.6 MMOL/L (-2.5-2.5); ABG HCO3 27.6 MMOL/L (20-26); ABG Oxygen Saturation 96.5 % (95-100); ABG PCO2 61.4 MM HG (35-48); ABG PH 7.328 (7.35-7.45); ABG TCO2 27.3 MMOL/L (23-27); Pt O2 Delivery Device Ventilator
[2016-12-23] MEDS: DEXTROSE 5% 1,000 ML IV SCH (03:41)
[2016-12-23] MEDS: ACETAMINOPHEN 500 MG TABLET PO PRN ×4 (03:43→21:06)
[2016-12-23 04:44] LABS: Basophils % 0.1 % (0.0-0.8); Eosinophils % 0.2 % (0.00-10.9); Hematocrit 51.1 VOL% (42.0-52.0); Hemoglobin 16.4 GM/DL (14.0-18.0); Immature Granulocytes % 14.3 %; Immature Granulocytes Absolute 3.47 #; Lymphocytes # 1.8 10*3/uL (1.4-4.0); Lymphocytes % 7.5 % (21.2-54.2); Mean Corpuscular HGB Conc 32.1 GM/DL (32-36); Mean Corpuscular Hemoglobin 32 PG (27-34); Mean Corpuscular Volume 100.2 FL (87-102); Mean Platelet Volume 11.6 FL (9.6-12.0); Monocytes # 2.2 10*3/uL (0.11-0.8); Monocytes % 9.1 % (1.7-12.7); Neutrophils # 16.8 10*3/uL (1.4-7.4); Neutrophils % 68.8 % (38.7-73.9); Platelet Count 229 T/CUMM (130-400); Red Cell Distribution Width 13.5 % (9.3-17.3); White Blood Count 24.3 T/CUMM (4-12)
[2016-12-23 05:34] LABS: Calcium 8.3 MG/DL (8.5-10.1); Magnesium 3.1 MG/DL (1.8-2.4); Osmolality,Calculated 337.7 MOS/KG (273-304); Potassium 5.8 MMOL/L (3.5-5.1)
[2016-12-23 05:46] LABS: Band Neutrophils 3 % (0-10); Giant Platelets Few; Hypochromasia 1+; Lymphocytes 9 % (20-55); Nucleated Red Blood Cells 1 (0-5); Platelet Estimate Adequate; Segmented Neutrophils 81 % (50-85); Total Cells Counted 100
[2016-12-23 05:47] LABS: Microcytosis Slight
[2016-12-23] MEDS: FUROSEMIDE 40 MG/4 ML VIAL IV SCH ×2 (10:04→17:14)
[2016-12-23] MEDS: methylPREDNISolone SOD SUC 40 MG/1 ML VIAL IV SCH ×2 (10:10→19:41)
[2016-12-23] MEDS: INSULIN GLARGINE 100 UNIT/ML SUBCUT SCH ×2 (10:12→21:05)
[2016-12-23] MEDS: APIXABAN 5 MG TABLET PO SCH (10:15)
[2016-12-23] MEDS: POTASSIUM CHLORIDE 20 MEQ/15 ML UDCUP PO SCH ×2 (10:15→20:02)
[2016-12-23] MEDS: ZINC OXIDE PASTE 113 GM TUBE TOP SCH ×2 (10:16→20:02)
[2016-12-23] MEDS: SOTALOL 80 MG TABLET PO SCH ×2 (10:20→20:01)
[2016-12-23] MEDS: MORPHINE 2 MG/1 ML SYRINGE IV PRN (12:46)
[2016-12-23] MEDS: SODIUM CHLORIDE 0.45% 1,000 ML IV SCH (16:51)
[2016-12-23] MEDS: METOPROLOL TARTRATE 5 MG/5 ML VIAL IV PRN (19:03)
[2016-12-23] MEDS: ASPIRIN CHEW 81 MG TABLET PO SCH (20:01)
[2016-12-23] MEDS: PRAVASTATIN 20 MG TABLET PO SCH (20:01)
[2016-12-23] MEDS: LEVOFLOXACIN INJ 500 MG in PREMIX 1 EACH IV SCH (20:02)
[2016-12-24] MEDS: CLINDAMYCIN INJ 600 MG in PREMIX 1 EACH IV SCH ×3 (00:05→16:00)
[2016-12-24] MEDS: INSULIN REGULAR 100 UNIT/ML SUBCUT SCH ×4 (00:15→17:47)
[2016-12-24] MEDS: ALBUTEROL/IPRATROPIUM 3 ML NEB RESP TX SCH ×4 (00:48→19:48)
[2016-12-24] MEDS: METOPROLOL TARTRATE 5 MG/5 ML VIAL IV PRN ×2 (02:45→21:13)
[2016-12-24] MEDS: SODIUM CHLORIDE 0.45% 1,000 ML IV SCH ×3 (03:15→23:59)
[2016-12-24] MEDS: ACETAMINOPHEN 500 MG TABLET PO PRN ×2 (04:00→17:48)
[2016-12-24 05:29] LABS: Basophils % 0.1 % (0.0-0.8); Eosinophils % 0.1 % (0.00-10.9); Hematocrit 48.5 VOL% (42.0-52.0); Hemoglobin 15.6 GM/DL (14.0-18.0); Immature Granulocytes % 9.6 %; Immature Granulocytes Absolute 2.26 #; Lymphocytes # 2.1 10*3/uL (1.4-4.0); Mean Corpuscular HGB Conc 32.2 GM/DL (32-36); Mean Corpuscular Hemoglobin 32 PG (27-34); Mean Corpuscular Volume 99.4 FL (87-102); Mean Platelet Volume 11.4 FL (9.6-12.0); Monocytes # 2.2 10*3/uL (0.11-0.8); Monocytes % 9.1 % (1.7-12.7); Neutrophils # 17.1 10*3/uL (1.4-7.4); Neutrophils % 72.1 % (38.7-73.9); Platelet Count 222 T/CUMM (130-400); Red Blood Count 4.88 MC/CUMM (3.8-5.5); Red Cell Distribution Width 13.7 % (9.3-17.3); White Blood Count 23.7 T/CUMM (4-12)
[2016-12-24 06:02] LABS: Anisocytosis 1+; Band Neutrophils 3 % (0-10); Eosinophils 1 % (0-10); Lymphocytes 10 % (20-55); Macrocytosis 1+; Metamyelocytes 1 %; Platelet Estimate Normal; Segmented Neutrophils 78 % (50-85); Total Cells Counted 100
[2016-12-24 06:03] LABS: Calcium 8.4 MG/DL (8.5-10.1); Osmolality,Calculated 339.6 MOS/KG (273-304); Potassium 5.2 MMOL/L (3.5-5.1)
[2016-12-24] MEDS ORDERED: SODIUM CHLORIDE 0.9% 500 ML IV ONE (06:33)
[2016-12-24] MEDS ORDERED: PHENYLEPHRINE DRIP 40 MG/250 ML PREMIX IV ONE (07:51)
[2016-12-24] MEDS: PHENYLEPHRINE INJ 160 MG in SODIUM CHLORIDE 0.9% 234 ML IV SCH ×2 (07:55→20:05)
[2016-12-24] MEDS: PROPOFOL 1,000 MG/100 ML BOTTLE IV SCH ×2 (07:56→16:10)
[2016-12-24] MEDS: INSULIN GLARGINE 100 UNIT/ML SUBCUT SCH ×2 (09:08→20:05)
[2016-12-24] MEDS: FUROSEMIDE 40 MG/4 ML VIAL IV SCH ×2 (09:08→16:00)
[2016-12-24] MEDS: ZINC OXIDE PASTE 113 GM TUBE TOP SCH ×2 (09:09→20:32)
[2016-12-24] MEDS: SOTALOL 80 MG TABLET PO SCH (09:09)
[2016-12-24] MEDS: FLUCONAZOLE 150 MG TABLET PO SCH (11:50)
[2016-12-24] MEDS ORDERED: AMIODARONE INJ 150 MG in DEXTROSE 5% 100 ML IV ONE (14:30)
[2016-12-24] MEDS: AMIODARONE INJ 450 MG in DEXTROSE 5% 241 ML IV SCH (15:01)
[2016-12-24] MEDS: ASPIRIN CHEW 81 MG TABLET PO SCH (20:18)
[2016-12-24] MEDS: PRAVASTATIN 20 MG TABLET PO SCH (20:18)
[2016-12-24] MEDS: LEVOFLOXACIN INJ 500 MG in PREMIX 1 EACH IV SCH (21:14)
[2016-12-25] MEDS: ALBUTEROL/IPRATROPIUM 3 ML NEB RESP TX SCH ×4 (00:34→20:30)
[2016-12-25] MEDS: INSULIN REGULAR 100 UNIT/ML SUBCUT SCH ×4 (00:49→17:41)
[2016-12-25] MEDS: PROPOFOL 1,000 MG/100 ML BOTTLE IV SCH ×3 (00:51→17:43)
[2016-12-25] MEDS: CLINDAMYCIN INJ 600 MG in PREMIX 1 EACH IV SCH ×3 (00:52→16:30)
[2016-12-25] MEDS: PHENYLEPHRINE DRIP 40 MG/250 ML PREMIX IV SCH ×2 (01:55→23:32)
[2016-12-25 03:34] LABS: ABG HCO3 28.7 MMOL/L (20-26); ABG Oxygen Saturation 88.7 % (95-100); ABG PCO2 57.9 MM HG (35-48); ABG PH 7.359 (7.35-7.45); ABG PO2 58.6 MM HG (80-95); ABG TCO2 28.1 MMOL/L (23-27)
[2016-12-25 04:49] LABS: Basophils # 0.1 10*3/uL (0.0-0.2); Basophils % 0.2 % (0.0-0.8); Eosinophils # 0.3 10*3/uL (0.0-0.87); Eosinophils % 0.8 % (0.00-10.9); Hemoglobin 15.3 GM/DL (14.0-18.0); Immature Granulocytes % 6.1 %; Immature Granulocytes Absolute 1.95 #; Lymphocytes # 2.5 10*3/uL (1.4-4.0); Lymphocytes % 7.9 % (21.2-54.2); Mean Corpuscular HGB Conc 32.6 GM/DL (32-36); Mean Corpuscular Hemoglobin 33 PG (27-34); Mean Corpuscular Volume 100.4 FL (87-102); Mean Platelet Volume 12.1 FL (9.6-12.0); Monocytes # 2.6 10*3/uL (0.11-0.8); Monocytes % 8.1 % (1.7-12.7); NRBC # 0.02 10*3/uL; Neutrophils # 24.6 10*3/uL (1.4-7.4); Neutrophils % 76.9 % (38.7-73.9); Platelet Count 235 T/CUMM (130-400); Red Blood Count 4.68 MC/CUMM (3.8-5.5); Red Cell Distribution Width 13.8 % (9.3-17.3); White Blood Count 31.9 T/CUMM (4-12)
[2016-12-25 05:20] LABS: Calcium 8.3 MG/DL (8.5-10.1); Magnesium 2.8 MG/DL (1.8-2.4); Osmolality,Calculated 335.4 MOS/KG (273-304); Potassium 4.5 MMOL/L (3.5-5.1)
[2016-12-25 05:26] LABS: Band Neutrophils 4 % (0-10); Eosinophils 1 % (0-10); Lymphocytes 8 % (20-55); Myelocytes 1 %; Nucleated Red Blood Cells 1 (0-5); Segmented Neutrophils 81 % (50-85); Total Cells Counted 100
[2016-12-25 05:27] LABS: Anisocytosis 1+; Giant Platelets Few; Macrocytosis 1+; Platelet Estimate Normal
[2016-12-25 05:52] LABS: Phosphorous 4.8 MG/DL (2.5-4.9); Prealbumin 21.9 MG/DL (20-40)
[2016-12-25] MEDS: FUROSEMIDE 40 MG/4 ML VIAL IV SCH ×2 (08:15→16:00)
[2016-12-25] MEDS: ZINC OXIDE PASTE 113 GM TUBE TOP SCH ×2 (08:50→20:19)
[2016-12-25] MEDS: INSULIN GLARGINE 100 UNIT/ML SUBCUT SCH ×2 (08:51→20:18)
[2016-12-25] MEDS: SODIUM CHLORIDE 0.45% 1,000 ML IV SCH ×4 (10:24→21:51)
[2016-12-25] MEDS: FLUCONAZOLE 150 MG TABLET PO SCH (10:24)
[2016-12-25 10:25] LABS: ABG Base Excess 4.9 MMOL/L (-2.5-2.5); ABG HCO3 31.8 MMOL/L (20-26); ABG Oxygen Saturation 91.5 % (95-100); ABG PCO2 55.8 MM HG (35-48); ABG PH 7.374 (7.35-7.45); ABG PO2 58.5 MM HG (80-95); ABG TCO2 33.5 MMOL/L (23-27); Allen Test Positive; Pt O2 Delivery Device Ventilator
[2016-12-25] MEDS: AMIODARONE INJ 450 MG in DEXTROSE 5% 241 ML IV SCH ×2 (12:42→21:00)
[2016-12-25] MEDS: AMIODARONE 200 MG TABLET PO SCH ×2 (13:49→20:18)
[2016-12-25] MEDS: PRAVASTATIN 20 MG TABLET PO SCH (20:17)
[2016-12-25] MEDS: LORazepam 2 MG/1 ML VIAL IV PRN (20:18)
[2016-12-25] MEDS: LEVOFLOXACIN INJ 500 MG in PREMIX 1 EACH IV SCH (20:18)
[2016-12-25] MEDS: METOPROLOL TARTRATE 5 MG/5 ML VIAL IV PRN (20:18)
[2016-12-25] MEDS: ASPIRIN CHEW 81 MG TABLET PO SCH (20:18)
[2016-12-26] MEDS: ALBUTEROL/IPRATROPIUM 3 ML NEB RESP TX SCH ×4 (02:07→19:39)
[2016-12-26 03:39] LABS: Allen Test Positive; Pt O2 Delivery Device Ventilator
[2016-12-26 03:45] LABS: ABG HCO3 31.6 MMOL/L (20-26); ABG Oxygen Saturation 92.3 % (95-100); ABG PCO2 57.9 MM HG (35-48); ABG PH 7.392 (7.35-7.45); ABG PO2 64.7 MM HG (80-95); ABG TCO2 30.7 MMOL/L (23-27)
[2016-12-26 04:14] LABS: Basophils # 0.1 10*3/uL (0.0-0.2); Basophils % 0.2 % (0.0-0.8); Eosinophils # 0.6 10*3/uL (0.0-0.87); Eosinophils % 1.6 % (0.00-10.9); Hematocrit 43.9 VOL% (42.0-52.0); Hemoglobin 13.9 GM/DL (14.0-18.0); Immature Granulocytes % 4.9 %; Immature Granulocytes Absolute 1.77 #; Lymphocytes # 2.6 10*3/uL (1.4-4.0); Lymphocytes % 7.1 % (21.2-54.2); Mean Corpuscular HGB Conc 31.7 GM/DL (32-36); Mean Corpuscular Hemoglobin 32 PG (27-34); Mean Corpuscular Volume 100.7 FL (87-102); Mean Platelet Volume 12.2 FL (9.6-12.0); Monocytes % 5.6 % (1.7-12.7); NRBC # 0.07 10*3/uL; Neutrophils % 80.6 % (38.7-73.9); Platelet Count 253 T/CUMM (130-400); Red Blood Count 4.36 MC/CUMM (3.8-5.5)
[2016-12-26 04:42] LABS: Calcium 8.2 MG/DL (8.5-10.1); Magnesium 2.6 MG/DL (1.8-2.4); Osmolality,Calculated 331.9 MOS/KG (273-304); Potassium 4.7 MMOL/L (3.5-5.1)
[2016-12-26] MEDS: SODIUM CHLORIDE 0.45% 1,000 ML IV SCH (05:20)
[2016-12-26] MEDS: PROPOFOL 1,000 MG/100 ML BOTTLE IV SCH ×2 (05:20→21:13)
[2016-12-26] MEDS: PHENYLEPHRINE DRIP 40 MG/250 ML PREMIX IV SCH ×3 (05:21→18:21)
[2016-12-26] MEDS: METOPROLOL TARTRATE 5 MG/5 ML VIAL IV PRN ×2 (05:25→13:14)
[2016-12-26 05:33] LABS: Band Neutrophils 3 % (0-10); Eosinophils 2 % (0-10); Giant Platelets Few; Hypochromasia Slight; Lymphocytes 3 % (20-55); Macrocytosis Slight; Platelet Estimate Adequate; Segmented Neutrophils 87 % (50-85); Total Cells Counted 100
[2016-12-26] MEDS: INSULIN REGULAR 100 UNIT/ML SUBCUT SCH ×4 (06:21→18:12)
[2016-12-26] MEDS: FUROSEMIDE 40 MG/4 ML VIAL IV SCH ×2 (08:55→16:29)
[2016-12-26] MEDS: FLUCONAZOLE 150 MG TABLET PO SCH (08:56)
[2016-12-26] MEDS: CLINDAMYCIN INJ 600 MG in PREMIX 1 EACH IV SCH ×3 (08:56→16:30)
[2016-12-26] MEDS: AMIODARONE 200 MG TABLET PO SCH ×2 (08:56→20:57)
[2016-12-26] MEDS: INSULIN GLARGINE 100 UNIT/ML SUBCUT SCH ×2 (08:57→20:57)
[2016-12-26] MEDS ORDERED: SODIUM CHLORIDE 23.4% CONC INJ 38.5 MEQ in STERILE WATER INJ 1,000 ML IV SCH (09:30)
[2016-12-26] MEDS: ZINC OXIDE PASTE 113 GM TUBE TOP SCH ×2 (11:15→20:57)
[2016-12-26] MEDS: AMIODARONE INJ 450 MG in DEXTROSE 5% 241 ML IV SCH (12:23)
[2016-12-26] MEDS ORDERED: MICROFIBRILLAR COLLAGEN POWDER 1 GM CAN TOP ONE (14:21)
[2016-12-26] MEDS ORDERED: LIDOCAINE 1%/EPI INJ 20 ML VIAL ONE (14:21)
[2016-12-26] MEDS ORDERED: THROMBIN TOPICAL (RECOMBINANT) 5,000 UNIT VIAL TOP ONE (14:21)
[2016-12-26] MEDS ORDERED: PHENYLEPHRINE 1 MG/10 ML SYRINGE IV ONE (14:55)
[2016-12-26] MEDS ORDERED: ROCURONIUM 100 MG/10 ML VIAL IV ONE (14:55)
[2016-12-26] MEDS ORDERED: fentaNYL 100 MCG/2 ML VIAL ONE (16:16)
[2016-12-26] MEDS ORDERED: SEVOFLURANE 1 UNIT/15 MINUTE INH ONE (16:16)
[2016-12-26] MEDS: DEXTROSE 5% 1,000 ML IV SCH (17:14)
[2016-12-26] MEDS: PRAVASTATIN 20 MG TABLET PO SCH (20:57)
[2016-12-26] MEDS: FINASTERIDE 5 MG TABLET PO SCH (20:57)
[2016-12-26] MEDS: ASPIRIN CHEW 81 MG TABLET PO SCH (20:57)
[2016-12-27] MEDS: ACETAMINOPHEN 500 MG TABLET PO PRN ×2 (00:06→14:58)
[2016-12-27] MEDS: INSULIN REGULAR 100 UNIT/ML SUBCUT SCH ×4 (00:30→18:25)
[2016-12-27] MEDS: CLINDAMYCIN INJ 600 MG in PREMIX 1 EACH IV SCH ×3 (00:31→15:47)
[2016-12-27] MEDS: ALBUTEROL/IPRATROPIUM 3 ML NEB RESP TX SCH ×4 (01:22→19:43)
[2016-12-27 03:51] LABS: ABG HCO3 33.9 MMOL/L (20-26); ABG Oxygen Saturation 97.5 % (95-100); ABG PCO2 59.2 MM HG (35-48); ABG PH 7.376 (7.35-7.45); ABG PO2 101.7 MM HG (80-95); ABG TCO2 35.7 MMOL/L (23-27); Allen Test Positive; Pt O2 Delivery Device Ventilator
[2016-12-27] MEDS: AMIODARONE INJ 450 MG in DEXTROSE 5% 241 ML IV SCH (04:19)
[2016-12-27 04:31] LABS: Basophils # 0.2 10*3/uL (0.0-0.2); Basophils % 0.7 % (0.0-0.8); Eosinophils # 0.4 10*3/uL (0.0-0.87); Eosinophils % 1.5 % (0.00-10.9); Hematocrit 38.2 VOL% (42.0-52.0); Hemoglobin 12.4 GM/DL (14.0-18.0); Immature Granulocytes % 3.7 %; Immature Granulocytes Absolute 1.05 #; Lymphocytes # 1.7 10*3/uL (1.4-4.0); Lymphocytes % 6.1 % (21.2-54.2); Mean Corpuscular HGB Conc 32.5 GM/DL (32-36); Mean Corpuscular Hemoglobin 33 PG (27-34); Mean Corpuscular Volume 100.8 FL (87-102); Mean Platelet Volume 12.2 FL (9.6-12.0); Monocytes # 1.6 10*3/uL (0.11-0.8); Monocytes % 5.5 % (1.7-12.7); NRBC # 0.02 10*3/uL; Neutrophils # 23.4 10*3/uL (1.4-7.4); Neutrophils % 82.5 % (38.7-73.9); Platelet Count 227 T/CUMM (130-400); Red Blood Count 3.79 MC/CUMM (3.8-5.5); Red Cell Distribution Width 14.2 % (9.3-17.3); White Blood Count 28.3 T/CUMM (4-12)
[2016-12-27 05:04] LABS: Calcium 8.1 MG/DL (8.5-10.1); Magnesium 2.5 MG/DL (1.8-2.4); Osmolality,Calculated 328.6 MOS/KG (273-304); Potassium 4.7 MMOL/L (3.5-5.1)
[2016-12-27 05:48] LABS: Band Neutrophils 3 % (0-10); Eosinophils 3 % (0-10); Giant Platelets Few; Hypochromasia 1+; Lymphocytes 5 % (20-55); Macrocytosis Slight; Platelet Estimate Adequate; Segmented Neutrophils 83 % (50-85); Total Cells Counted 100
[2016-12-27 05:49] LABS: Polychromasia Slight
[2016-12-27] MEDS: DEXTROSE 5% 1,000 ML IV SCH (06:21)
[2016-12-27] MEDS: PHENYLEPHRINE DRIP 40 MG/250 ML PREMIX IV SCH (07:12)
[2016-12-27] MEDS ORDERED: DIGOXIN 0.5 MG/2 ML AMP IV ONE (07:57)
[2016-12-27] MEDS: FUROSEMIDE 40 MG/4 ML VIAL IV SCH ×2 (09:06→15:47)
[2016-12-27] MEDS: AMIODARONE 200 MG TABLET PO SCH ×2 (09:08→21:06)
[2016-12-27] MEDS: INSULIN GLARGINE 100 UNIT/ML SUBCUT SCH ×2 (09:08→21:06)
[2016-12-27] MEDS: CEFEPIME 1,000 MG in SODIUM CHLORIDE 0.9% 50 ML IV SCH ×2 (09:24→21:04)
[2016-12-27] MEDS: FLUCONAZOLE 150 MG TABLET PO SCH (09:24)
[2016-12-27] MEDS: ZINC OXIDE PASTE 113 GM TUBE TOP SCH ×2 (09:32→21:06)
[2016-12-27 09:38] LABS: Allen Test Positive; Pt O2 Delivery Device Ventilator
[2016-12-27 09:39] LABS: ABG Base Excess 6.1 MMOL/L (-2.5-2.5); ABG HCO3 33.2 MMOL/L (20-26); ABG Oxygen Saturation 93.5 % (95-100); ABG PCO2 59.5 MM HG (35-48); ABG PH 7.364 (7.35-7.45); ABG PO2 68.1 MM HG (80-95)
[2016-12-27] MEDS ORDERED: METOPROLOL TARTRATE 5 MG/5 ML VIAL IV ONE (11:30)
[2016-12-27] MEDS: DILTIAZEM 30 MG TABLET PO SCH ×2 (14:58→21:05)
[2016-12-27] MEDS: FINASTERIDE 5 MG TABLET PO SCH (21:05)
[2016-12-27] MEDS: ASPIRIN CHEW 81 MG TABLET PO SCH (21:05)
[2016-12-27] MEDS: PRAVASTATIN 20 MG TABLET PO SCH (21:05)
[2016-12-27] MEDS: HYDROCORTISONE 1% CREAM 28 GM TUBE TOP SCH (21:11)
[2016-12-27] MEDS: PROPOFOL 1,000 MG/100 ML BOTTLE IV SCH (22:55)
[2016-12-28] MEDS: CLINDAMYCIN INJ 600 MG in PREMIX 1 EACH IV SCH ×3 (00:12→16:14)
[2016-12-28] MEDS: INSULIN REGULAR 100 UNIT/ML SUBCUT SCH ×4 (00:12→18:18)
[2016-12-28] MEDS: ALBUTEROL/IPRATROPIUM 3 ML NEB RESP TX SCH ×4 (00:25→19:44)
[2016-12-28] MEDS: DEXTROSE 5% 1,000 ML IV SCH (00:30)
[2016-12-28 02:45] LABS: ABG Base Excess 3.9 MMOL/L (-2.5-2.5); ABG HCO3 27.9 MMOL/L (20-26); ABG Oxygen Saturation 95.3 % (95-100); ABG PCO2 66.8 MM HG (35-48); ABG PH 7.293 (7.35-7.45); ABG PO2 77.7 MM HG (80-95); ABG TCO2 29.6 MMOL/L (23-27); Pt O2 Delivery Device Ventilator
[2016-12-28] MEDS: ACETAMINOPHEN 500 MG TABLET PO PRN ×3 (05:25→21:54)
[2016-12-28 05:43] LABS: Basophils # 0.2 10*3/uL (0.0-0.2); Basophils % 0.5 % (0.0-0.8); Eosinophils # 0.7 10*3/uL (0.0-0.87); Eosinophils % 2.5 % (0.00-10.9); Hematocrit 36.8 VOL% (42.0-52.0); Hemoglobin 11.4 GM/DL (14.0-18.0); Immature Granulocytes % 3.4 %; Immature Granulocytes Absolute 0.98 #; Lymphocytes # 1.7 10*3/uL (1.4-4.0); Lymphocytes % 6.1 % (21.2-54.2); Mean Corpuscular Hemoglobin 32 PG (27-34); Mean Corpuscular Volume 103.7 FL (87-102); Monocytes # 1.6 10*3/uL (0.11-0.8); Monocytes % 5.5 % (1.7-12.7); NRBC # 0.02 10*3/uL; Neutrophils # 23.4 10*3/uL (1.4-7.4); Platelet Count 217 T/CUMM (130-400); Red Blood Count 3.55 MC/CUMM (3.8-5.5); Red Cell Distribution Width 14.4 % (9.3-17.3); White Blood Count 28.5 T/CUMM (4-12)
[2016-12-28 06:13] LABS: Calcium 8.1 MG/DL (8.5-10.1); Magnesium 2.9 MG/DL (1.8-2.4); Osmolality,Calculated 327.4 MOS/KG (273-304)
[2016-12-28 06:16] LABS: Band Neutrophils 6 % (0-10); Lymphocytes 4 % (20-55); Segmented Neutrophils 88 % (50-85); Total Cells Counted 100
[2016-12-28 06:17] LABS: Giant Platelets Few; Hypochromasia 1+; Macrocytosis Slight; Platelet Estimate Adequate; Polychromasia Slight
[2016-12-28 06:20] LABS: Phosphorous 6.2 MG/DL (2.5-4.9)
[2016-12-28] MEDS: CEFEPIME 1,000 MG in SODIUM CHLORIDE 0.9% 50 ML IV SCH ×2 (08:36→22:02)
[2016-12-28] MEDS: INSULIN GLARGINE 100 UNIT/ML SUBCUT SCH ×2 (08:41→22:03)
[2016-12-28] MEDS: FLUCONAZOLE 150 MG TABLET PO SCH (08:41)
[2016-12-28] MEDS: FUROSEMIDE 40 MG/4 ML VIAL IV SCH ×2 (08:42→16:08)
[2016-12-28] MEDS: AMIODARONE 200 MG TABLET PO SCH ×2 (08:42→21:54)
[2016-12-28] MEDS: DILTIAZEM 30 MG TABLET PO SCH ×3 (08:42→21:53)
[2016-12-28] MEDS: HYDROCORTISONE 1% CREAM 28 GM TUBE TOP SCH ×2 (08:55→22:02)
[2016-12-28] MEDS: ZINC OXIDE PASTE 113 GM TUBE TOP SCH ×3 (08:55→22:02)
[2016-12-28] MEDS: PHENYLEPHRINE DRIP 40 MG/250 ML PREMIX IV SCH ×2 (10:05→19:51)
[2016-12-28] MEDS: PANTOPRAZOLE 40 MG VIAL IV SCH (13:28)
[2016-12-28] MEDS: MORPHINE 2 MG/1 ML SYRINGE IV PRN ×2 (16:08→22:12)
[2016-12-28] MEDS: FINASTERIDE 5 MG TABLET PO SCH (21:54)
[2016-12-28] MEDS: PRAVASTATIN 20 MG TABLET PO SCH (21:54)
[2016-12-28] MEDS: PROPOFOL 1,000 MG/100 ML BOTTLE IV SCH (22:27)
[2016-12-29] MEDS: INSULIN REGULAR 100 UNIT/ML SUBCUT SCH ×4 (00:20→17:28)
[2016-12-29] MEDS: ALBUTEROL/IPRATROPIUM 3 ML NEB RESP TX SCH ×4 (00:48→19:27)
[2016-12-29] MEDS: PHENYLEPHRINE DRIP 40 MG/250 ML PREMIX IV SCH ×6 (01:55→23:52)
[2016-12-29] MEDS: MORPHINE 2 MG/1 ML SYRINGE IV PRN ×4 (02:30→17:53)
[2016-12-29 03:28] LABS: ABG Base Excess 3.9 MMOL/L (-2.5-2.5); ABG HCO3 27.9 MMOL/L (20-26); ABG Oxygen Saturation 96.3 % (95-100); ABG PH 7.282 (7.35-7.45); ABG PO2 85.7 MM HG (80-95); ABG TCO2 29.8 MMOL/L (23-27)
[2016-12-29 03:31] LABS: ABG PCO2 69.8 MM HG (35-48)
[2016-12-29] MEDS ORDERED: ASPIRIN CHEW 81 MG TABLET PO ONE (09:03)
[2016-12-29] MEDS: CEFEPIME 1,000 MG in SODIUM CHLORIDE 0.9% 50 ML IV SCH ×2 (09:10→21:05)
[2016-12-29] MEDS: PANTOPRAZOLE 40 MG VIAL IV SCH (09:11)
[2016-12-29] MEDS: AMIODARONE 200 MG TABLET PO SCH ×2 (09:12→21:06)
[2016-12-29] MEDS: FLUCONAZOLE 150 MG TABLET PO SCH (09:12)
[2016-12-29] MEDS: INSULIN GLARGINE 100 UNIT/ML SUBCUT SCH ×2 (09:12→21:05)
[2016-12-29] MEDS: DILTIAZEM 30 MG TABLET PO SCH ×3 (09:12→21:06)
[2016-12-29] MEDS: ZINC OXIDE PASTE 113 GM TUBE TOP SCH ×2 (09:16→21:07)
[2016-12-29] MEDS: HYDROCORTISONE 1% CREAM 28 GM TUBE TOP SCH ×2 (09:16→21:08)
[2016-12-29] MEDS: FUROSEMIDE 40 MG/4 ML VIAL IV SCH ×2 (09:16→15:00)
[2016-12-29] MEDS ORDERED: ASPIRIN CHEW 81 MG TABLET PO SCH (09:30)
[2016-12-29] MEDS: ACETAMINOPHEN 500 MG TABLET PO PRN ×2 (09:41→21:06)
[2016-12-29] MEDS ORDERED: MINERAL OIL/PETROLATUM OPH OINT 3.5 GM TUBE LEFT EYE SCH (21:00)
[2016-12-29] MEDS: FINASTERIDE 5 MG TABLET PO SCH (21:06)
[2016-12-29] MEDS: PRAVASTATIN 20 MG TABLET PO SCH (21:06)
[2016-12-29] MEDS ORDERED: SODIUM CHLORIDE 0.9% 500 ML IV ONE (23:25)
[2016-12-29] MEDS ORDERED: DOPamine 800 MG/250 ML PREMIX IV SCH (23:30)
[2016-12-29] MEDS ORDERED: PHENYLEPHRINE INJ 160 MG in SODIUM CHLORIDE 0.9% 234 ML IV SCH (23:45)
[2016-12-30] MEDS: ALBUTEROL/IPRATROPIUM 3 ML NEB RESP TX SCH (00:26)
[2016-12-30] MEDS ORDERED: NOREPINEPHRINE 8 MG in SODIUM CHLORIDE 0.9% 242 ML IV SCH (00:30)
[2016-12-30] MEDS: INSULIN REGULAR 100 UNIT/ML SUBCUT SCH (01:04)
[2016-12-30] MEDS: MORPHINE 2 MG/1 ML SYRINGE IV PRN (01:32)
[2016-12-30] MEDS: PHENYLEPHRINE DRIP 40 MG/250 ML PREMIX IV SCH (01:39)
[2016-12-30 01:45] VITALS: BP 75/42
== END 2016-12-30 01:49 | disposition expired | DRG 4 ==
LOC: N.ED 08:50 → N.EDINP 11:36 → N.TELES 14:21 → N.CC 12-15 18:58
PROVIDERS: ADMIT Family Medicine; ATTEND Family Medicine